=== PATIENT | female | born 1980 | race Two or more races ===

== ENCOUNTER 2022-01-31 15:17 | Outpatient (REF) | payer OTHER, SELFPAY ==
--- NOTE | ~2022-01-31 | US_ITS ---
EXAMINATION: US SOFT TISSUE NECK CLINICAL INFORMATION: Localized swelling mass and lump of the neck. History of thyroid cancer. COMPARISON: None TECHNIQUE: Ultrasound of the neck soft tissues of the right neck using a linear transducer FINDINGS: Palpable abnormality corresponds to a lymph node. This is normal in size and measures 1.5 x 0.3 x 0.6 cm sagittal AP and transverse dimension. This demonstrates normal ultrasound morphology and flow. US/US soft tiss head and/or neck IMPRESSION: Palpable abnormality corresponds to a normal-appearing right cervical lymph node.
== END 2022-01-31 15:18 | disposition home or self-care (01) ==
LOC: HO.US 15:17
PROVIDERS: Visit Provider Nurse Practitioner Acute Care
DX: R22.1 Localized swelling, mass and lump, neck (principal)
CPT/HCPCS: 76536

== ENCOUNTER 2022-03-03 09:58 | Emergency (ER) | payer OTHER, SELFPAY ==
--- NOTE | ~2022-03-03 | CT_ITS ---
EXAMINATION: CT ABDOMEN AND PELVIS WITH CONTRAST CLINICAL INFORMATION: Right upper quadrant pain COMPARISON: None TECHNIQUE: Multidetector volumetric images were obtained from the superior aspect of the liver through the pubic symphysis following administration 85 mL of Omnipaque 350 intravenous contrast. Sagittal and coronal reformatted images were obtained on the technologist's workstation. Oral contrast: No This CT examination was performed using dose optimization techniques as appropriate, variously including the following: *Automated exposure control *Adjustment of mA and/or kV according to patient size (this includes techniques or standardized protocols for targeted exams where dose is matched to indication/reason for exam; i.e. extremities or head) *Use of iterative reconstruction technique DLP: 1005 mGy-cm FINDINGS: LUNG BASES: The visualized lung bases are unremarkable. LIVER, GALLBLADDER, AND BILIARY TREE: The liver is normal in size, shape, and attenuation. No focal hepatic lesion or biliary ductal dilatation is present. The gallbladder is unremarkable with no evidence of radiopaque gallstones, gallbladder wall thickening, or obvious pericholecystic inflammatory changes. PANCREAS: Unremarkable. SPLEEN: Unremarkable. ADRENAL GLANDS: Unremarkable. KIDNEYS AND URETERS: The kidneys are normal in size, shape, and attenuation. No hydronephrosis, hydroureter, or calculi seen. No perinephric stranding. BLADDER: Unremarkable. GASTROINTESTINAL TRACT: The small and large bowel are unremarkable. The appendix is unremarkable. ABDOMINAL WALL: No significant hernia is appreciated. LYMPH NODES: Normal. VASCULAR: Unremarkable. PELVIC VISCERA: Unremarkable. OSSEOUS STRUCTURES: Degenerative disc disease at L5-S1 with endplate osteophytes and hypertrophic facet arthropathy narrowing the central canal. Central canal narrowing also noted at L4-L5 predominantly due to a bulging disc and facet arthrosis. At L1-L2, there is a posterior disc osteophyte complex and central stenosis. CT/CT abdomen pelvis w con IMPRESSION: No focal inflammatory process or obstruction. Degenerative findings of the lumbar spine as described. Fleischner guidelines were followed.
--- NOTE | ~2022-03-03 | US_ITS ---
EXAMINATION: US ABDOMEN LIMITED CLINICAL INFORMATION: Right upper quadrant/right flank pain. Nausea.. COMPARISON: None TECHNIQUE: Real-time imaging of the right upper quadrant abdominal viscera. FINDINGS: PANCREAS: Visualized portions of pancreas are normal in appearance. LIVER: The liver is normal in size. The liver contour is normal. Liver echogenicity is diffusely increased. No focal hepatic lesion. There is no intrahepatic biliary duct dilatation seen. GALLBLADDER: The gallbladder is physiologically distended without evidence of stones, sludge, polyps, wall thickening or pericholecystic fluid. Technologist reports a positive sonographic Zepeda's sign. COMMON BILE DUCT: Normal in caliber measuring 0.3 cm in diameter. RIGHT KIDNEY: Normal. No hydronephrosis. No renal calculi or focal parenchymal lesions. The kidney measures 10.8 cm in maximum dimension. FREE FLUID: None. US/US abdomen limited IMPRESSION: -Diffusely increased liver echogenicity. This is a nonspecific finding but most suggestive of hepatic steatosis. Correlation with liver enzymes recommended. -Normal sonographic appearance of the gallbladder without gallstones, however, the technologist reports a positive sonographic Zepeda's sign. Clinical correlation recommended.
[2022-03-03 10:08] VITALS: BP 119/78; PULSE 78; RESP 18; TEMP 36.4; O2SAT 95; BMI 37.8
--- NOTE | 2022-03-03 11:24 | ED_ITS ---
HPI - Abdominal Pain General Chief Complaint: Abdominal Pain Stated Complaint: lower abd pain Time Seen by Provider: 03/03/22 11:13 Source: patient Mode of arrival: ambulatory History of Present Illness HPI narrative: 41-year-old female with a past medical history Julio's, hypothyroid, diabetes, presenting to the ED complaining of right-sided flank pain radiating to right knee x2 weeks. Reports pain intermittent relieved with ibuprofen with associated nausea and diarrhea. Admits pain worse with eating. Denies fever, chills, vomiting, constipation, dysuria, hematuria, cough, CP MD elicited complaint: abdominal pain and flank pain Related Data Previous Rx's Medication Instructions Recorded melatonin 1 mg tablet 1 mg PO BEDTIME PRN #30 tab 01/31/22 metformin 500 mg tablet 500 mg PO BID #60 tab 02/04/22 Synthroid 200 mcg tablet 200 mcg PO DAILY #30 tab NS 02/07/22 (levothyroxine) blood sugar diagnostic (FreeStyle #100 ea 02/08/22 Lite Strips) blood-glucose meter (FreeStyle #1 ea 02/08/22 Lite Meter) lancets 28 gauge (FreeStyle #100 ea 02/08/22 Lancets) ciprofloxacin HCl 500 mg tablet 500 mg PO BID 7 Days #14 tab 03/03/22 Allergies Allergy/AdvReac Type Severity Reaction Status Date / Time No Known Allergies Allergy Verified 03/03/22 10:14 Review of Systems Review of Systems Constitutional: No Fever, No Chills, No Fatigue, No Malaise ENT/Mouth: No Ear Pain, No Nasal Congestion, No sore throat, No Rhinorrhea, No Swallowing Difficulty Eyes: No Eye Pain, No Swelling, No Redness Cardiovascular: No Chest Pain, No SOB Respiratory: No Cough, No Sputum, No Dyspnea Gastrointestinal: + Nausea, No Vomiting, + Diarrhea, No Constipation, + Abdominal pain Genitourinary: No Dysuria, No Urinary Frequency, No Hematuria, No Urinary Incontinence, No Urgency, + Flank Pain, No Urinary Flow Changes Musculoskeletal: No joint pain, No Myalgias, No Joint Swelling Skin: No Skin Lesions, No rash Neuro: No Weakness, No Numbness, No Dizziness, No Headache Yes all other systems are reviewed and are negative [facility] Past Medical History Attestation statement: The following information was validated with the patient. Medical History Julio's thyroiditis Hypothyroidism Mass of right side of neck Type II diabetes mellitus Surgical History History of thyroid surgery Family History Family History Mother No problems noted. Father No problems noted. Social History Social History Housing: House Patient Tobacco Use Status: Never used Tobacco e-Cigarette/Vaping Use: Never Used Second Hand Smoke Exposure: No Advance Directives: Yes Advance Directives Information Provided: Yes Advance Directives on File: No Patient : No service: No Current occupational status: disabled Cognitive needs: No Hearing needs: No Vision needs: No Physical Exam ED Vital Signs: Vital Signs - 24 hr 03/03/22 10:08 Temperature 97.6 F Pulse Rate 78 Respiratory Rate 18 Blood Pressure 119/78 Pulse Oximetry 95 BMI result Body Mass Index 37.8 Const General: cooperative, healthy appearing, no acute distress, alert and awake Orientation/consciousness: patient oriented x3 Limitations: no limitations HENMT Head: Yes normal to inspection Ears: hearing grossly normal bilaterally General nose exam: Normal external nose present Face and sinus: Yes normal facial exam Eyes General: appearance normal, both eyes and all related structures EOM: EOMs intact bilaterally Neck Neck: Yes normal visual inspection and Yes no meningeal signs Resp Effort & Inspection: normal respiratory effort and no respiratory distress Auscultation: clear to auscultation bilaterally Cardio Rate: regular rate Heart sounds: S1 normal heart sound present and S2 normal heart sound present GI Inspection: Yes normal to inspection Palpation (GI): Soft to palpation, Tenderness to palpation present (GI) in the RUQ, no guarding and not rigid General: Yes CVA tenderness on the right Back/Spine/Pelvis Back: CVA tenderness Skin Rashes: no rashes Wounds: no wounds Neuro General: patient oriented x3 and no meningeal signs Gait exam (Neuro): Normal gait present Extrem General: Yes normal to inspection Course Course Course Narrative: 1258--no leukocytosis. Labs otherwise unremarkable. UA infected > with patient's symptoms concern for pyelonephritis US abdomen limited IMPRESSION: -Diffusely increased liver echogenicity. This is a nonspecific finding but most suggestive of hepatic steatosis. Correlation with liver enzymes recommended. -Normal sonographic appearance of the gallbladder without gallstones, however, the technologist reports a positive sonographic Zepeda's sign. Clinical correlation recommended. >>1300--on re-evaluation patient is still very tender in RUQ. Case discussed with Dr. Kaur, will obtain CT AP for further evaluation 1610--CT abdomen pelvis w con IMPRESSION: No focal inflammatory process or obstruction. Degenerative findings of the lumbar spine as described.? Fleischner guidelines were followed. >> results discussed with patient. Given 1st dose of Levaquin in the ED. MDM - Abdominal Pain MDM Narrative Medical decision making narrative: 41-year-old female with a past medical history Julio's, hypothyroid, diabetes, presenting to the ED complaining of right-sided flank pain radiating to right knee x2 weeks.On exam vital signs stable, NAD/nontoxic appearing, abdomen soft with RUQ/right CVAT, no rebound or guarding. Concern for cholecystitis/lithiasis vs renal stone/colic vs pancreatitis. Lower concern for Pyelo/UTI or appendicitis/diverticulitis Plan: Labs, UA, IVF, pain management, antiemetics Differential Diagnosis Differential diagnosis: Likely pancreatitis and renal colic Medical Records Attestation: I reviewed the patient's medical records. Lab Data Attestation: I reviewed the patient's lab results. Result diagrams: 03/03/22 11:34 03/03/22 11:34 Labs: Lab Results 03/03/22 03/03/22 03/03/22 Range/Units 11:34 11:34 11:38 WBC 7.3 (4.8-10.8) X10*3/uL RBC 4.77 (4.20-5.50) X10*6/uL Hgb 12.7 (12.0-16.0) g/dl Hct 39.3 (37.0-47.0) % MCV 82.4 (80.0-98.0) fL MCH 26.6 L (27.0-33.0) pg MCHC 32.3 (31.0-35.0) g/dl RDW 13.5 (11.0-16.0) % Plt Count 296 (160-400) X10*3/uL MPV 9.8 (9.4-12.3) fL Immature Gran % (Auto) 0.1 (0.0-0.4) % Neut % (Auto) 53.8 (45-73) % Lymph % (Auto) 37.2 (20-40) % [place] % (Auto) 6.8 (2-11) % Eos % (Auto) 1.0 (0-4) % Baso % (Auto) 1.1 (0-2) % Lymph # (Auto) 2.7 (1.2-4.9) X10*3/uL [place] # (Auto) 0.5 (0.1-1.2) X10*3/uL Eos # (Auto) 0.1 (0.0-0.4) X10*3/uL Baso # (Auto) 0.1 (0.0-0.2) X10*3/uL Abs Immat Gran (auto) 0.01 (0.00-0.03) X10*3/uL Absolute Neuts (auto) 4.0 (2.0-8.3) x10*3/uL Absolute Nucleated RBC 0.000 (0.0-0.012) X10*3/uL Nucleated RBC % (auto) 0.0 (0.0-0.2) /100WBC Sodium 139 (135-145) mmol/L Potassium 4.2 (3.3-5.1) mmol/L Chloride 107 (96-108) mmol/L Carbon Dioxide 24 (22-29) mmol/L Anion Gap 12 (12-20) BUN 10 (9-16) mg/dL Creatinine 0.76 (0.5-1.4) mg/dL Estim Creat Clear Calc 111.8 Estimated GFR > 60 Random Glucose 90 (60-115) mg/dL Calcium 9.5 (8.4-10.2) mg/dL Magnesium 2.0 (1.6-2.6) mg/dL Total Bilirubin 0.3 (0.0-1.0) mg/dL Direct Bilirubin < 0.2 (0.0-0.5) mg/dL AST 14 (5-31) U/L ALT 15 (0-31) U/L Alkaline Phosphatase 71 (39-117) U/L Total Protein 7.4 (6.5-8.0) g/dL Albumin 4.2 (3.5-5.0) g/dL Lipase 18 (8-78) U/L Beta HCG, Quant < 2 mIU/mL Urine Color YELLOW Urine Appearance CLOUDY Urine pH 6.0 (5.0-8.0) Ur Specific [place] 1.020 (1.005-1.025) Urine Protein NEG (NEG-TRACE) MG/DL Urine Glucose (UA) NEG (NEG) MG/DL Urine Ketones NEG (NEG) MG/DL Urine Blood TRACE (NEG) Urine Nitrite NEG (NEG) Ur Leukocyte Esterase 1+ H (NEG) Urine RBC 0-2 (0) /HPF Urine WBC 10-14 H (0-4) /HPF Ur Squamous Epith Cells 1+ /LPF Urine Bacteria 2+ /LPF Discharge Plan Discharge Clinical Impression: UTI (urinary tract infection) Patient Disposition: Home, Self-Care Instructions: Urinary Tract Infection in Women (DC) Additional Instructions: You have a urinary tract infection. Ciprofloxacin is antibiotic take as prescribed. Please stay hydrated. Your ultrasound and CT scan were unremarkable If her symptoms persist or worsen, pain becomes unbearable, you fever, you are unable to eat or drink, persistent nausea or vomiting please return to the emergency department Tienes sammy infecci?n del tracto urinario. La ciprofloxacina es un antibi?laith qu e se sharon seg?n lo prescrito. Por favor, mantente hidratado. Lorenz ultrasonido y tomograf?a computarizada no fueron notables Si ronan s?ntomas persisten o empeoran, el dolor se vuelve insoportable, tiene f iebre, no puede comer ni beber, n?useas o v?mitos persistentes, regrese al departamento de emergencias. Prescriptions: New ciprofloxacin HCl 500 mg tablet 500 mg PO BID 7 Days Qty: 14 0RF No Action metformin 500 mg tablet 500 mg PO BID Qty: 60 1RF levothyroxine [Synthroid] 200 mcg tablet 200 mcg PO DAILY Qty: 30 2RF (DME) FreeStyle Lite Strips Strip See Rx Instructions .Route Qty: 100 0RF Rx Instructions: Test Daily (DME) blood-glucose meter [FreeStyle Lite Meter] Kit See Rx Instructions .Route Qty: 1 0RF Rx Instructions: Test Daily (DME) lancets [FreeStyle Lancets] 28 gauge misc See Rx Instructions .Route Qty: 100 0RF Rx Instructions: Test daily melatonin 1 mg tablet 1 mg PO BEDTIME PRN (Reason: sleep) Qty: 30 0RF Referrals: David Jaimes [Physician] - 1 week Maria Elena Gomez MD [Primary Care Provider] - 2 days Print Language: Frisian
[2022-03-03 11:39] LABS: MANUAL DIFF FLAG NO
[2022-03-03 11:40] LABS: Basophils Absolute Auto 0.1 X10*3/uL (0.0-0.2); Basophils Percent Auto 1.1 % (0-2); Eosinophils Absolute Auto 0.1 X10*3/uL (0.0-0.4); Hematocrit 39.3 % (37.0-47.0); Hemoglobin 12.7 g/dl (12.0-16.0); Imm Gran Abs Auto 0.01 X10*3/uL (0.00-0.03); Imm Gran Pct Auto 0.1 % (0.0-0.4); Lymphocytes Absolute Auto 2.7 X10*3/uL (1.2-4.9); Lymphocytes Percent Auto 37.2 % (20-40); Mean Corpuscular HGB Conc 32.3 g/dl (31.0-35.0); Mean Corpuscular Hemoglobin 26.6 pg (27.0-33.0); Mean Corpuscular Volume 82.4 fL (80.0-98.0); Mean Platelet Volume 9.8 fL (9.4-12.3); Monocytes Absolute Auto 0.5 X10*3/uL (0.1-1.2); Monocytes Percent Auto 6.8 % (2-11); Neutrophils Percent Auto 53.8 % (45-73); Platelet Count 296 X10*3/uL (160-400); Red Blood Count 4.77 X10*6/uL (4.20-5.50); Red Cell Distribution Width 13.5 % (11.0-16.0); White Blood Count 7.3 X10*3/uL (4.8-10.8)
[2022-03-03 11:51] LABS: Appearance Urine CLOUDY; Color Urine YELLOW; Glucose Urine UA NEG (NEG); Leukocyte Esterase Urine 1+ (NEG); Nitrite Urine NEG (NEG); UACC Culture Trigger YES; Urine Blood TRACE (NEG); Urine Ketones NEG (NEG); Urine Protein NEG (NEG-TRACE)
[2022-03-03 12:01] LABS: Squamous Epithelial Cell Urine 1+ /LPF
[2022-03-03 12:02] LABS: Bacteria Urine 2+ /LPF; RBC Urine 0-2 /HPF (0)
[2022-03-03] MEDS: 0.9 % Sodium Chloride 1,000 ML 999 ML IV (12:03)
[2022-03-03] MEDS: Ketorolac Tromethamine 15 MG/ML VIAL IVPUSH (12:03)
[2022-03-03] MEDS: ondansetron HCL 4 MG/2 ML VIAL IVPUSH (12:03)
[2022-03-03 12:09] LABS: Alanine Aminotransferase 15 U/L (0-31); Albumin Level 4.2 g/dL (3.5-5.0); Alkaline Phosphatase 71 U/L (39-117); Anion Gap 12 (12-20); Aspartate Amino Transferase 14 U/L (5-31); Bilirubin Direct < 0.2 mg/dL (0.0-0.5); Bilirubin Total 0.3 mg/dL (0.0-1.0); Blood Urea Nitrogen 10 mg/dL (9-16); Calcium 9.5 mg/dL (8.4-10.2); Carbon Dioxide 24 mmol/L (22-29); Chloride 107 mmol/L (96-108); Creatinine Clr Calc Pharmacy 111.8; Estimated Glomerular Filt Rate > 60; Glucose Random 90 mg/dL (60-115); Lipase 18 U/L (8-78); Potassium 4.2 mmol/L (3.3-5.1); Sodium 139 mmol/L (135-145); Total Protein 7.4 g/dL (6.5-8.0)
[2022-03-03 13:54] LABS: HCG Quantitative < 2 mIU/mL
[2022-03-03] MEDS: iohexoL 350 MG/ML 100 ML INFUS..BTL 85 ML IV (14:47)
[2022-03-03 16:25] VITALS: BP 115/66; PULSE 82; RESP 12; TEMP 36.8
[2022-03-03] MEDS: levoFLOXacin 750 MG TABLET PO (16:30)
== END 2022-03-03 16:39 | disposition home or self-care (01) ==
PROVIDERS: Physician Assistant; Emergency Provider Emergency Medicine Emergency Medical Services; PCP Internal Medicine
DX: N39.0 Urinary tract infection, site not specified (principal); R10.11 Right upper quadrant pain; Z79.899 Other long term (current) drug therapy
CPT/HCPCS: 36415; 74177; 76705; 80048; 80076; 81001; 83690; 83735; 84702; 85025; 87086; 87088; 87186; 96374; 96375; 99284; J1885; J2405; Q9967

== ENCOUNTER 2022-03-04 09:43 | Outpatient (REF) | payer OTHER, SELFPAY ==
[2022-03-04 10:03] LABS: MANUAL DIFF FLAG NO
[2022-03-04 10:38] LABS: Basophils Percent Auto 0.7 % (0-2); Eosinophils Absolute Auto 0.1 X10*3/uL (0.0-0.4); Eosinophils Percent Auto 0.9 % (0-4); Hematocrit 39.7 % (37.0-47.0); Hemoglobin 12.5 g/dl (12.0-16.0); Imm Gran Abs Auto 0.02 X10*3/uL (0.00-0.03); Imm Gran Pct Auto 0.4 % (0.0-0.4); Lymphocytes Absolute Auto 2.3 X10*3/uL (1.2-4.9); Lymphocytes Percent Auto 40.8 % (20-40); Mean Corpuscular HGB Conc 31.5 g/dl (31.0-35.0); Mean Corpuscular Hemoglobin 26.2 pg (27.0-33.0); Mean Corpuscular Volume 83.2 fL (80.0-98.0); Mean Platelet Volume 10.4 fL (9.4-12.3); Monocytes Absolute Auto 0.3 X10*3/uL (0.1-1.2); Monocytes Percent Auto 5.9 % (2-11); Neutrophils Absolute Auto 2.9 x10*3/uL (2.0-8.3); Neutrophils Percent Auto 51.3 % (45-73); Platelet Count 289 X10*3/uL (160-400); Red Blood Count 4.77 X10*6/uL (4.20-5.50); Red Cell Distribution Width 13.5 % (11.0-16.0); White Blood Count 5.6 X10*3/uL (4.8-10.8)
[2022-03-04 10:49] LABS: Estimated Average Glucose 111 mg/dL; Hemoglobin A1c % 5.5 %
[2022-03-04 11:13] LABS: Alanine Aminotransferase 15 U/L (0-31); Albumin Level 4.1 g/dL (3.5-5.0); Alkaline Phosphatase 71 U/L (39-117); Anion Gap 11 (12-20); Aspartate Amino Transferase 10 U/L (5-31); Bilirubin Total 0.4 mg/dL (0.0-1.0); Blood Urea Nitrogen 10 mg/dL (9-16); Calcium 9.7 mg/dL (8.4-10.2); Carbon Dioxide 24 mmol/L (22-29); Chloride 108 mmol/L (96-108); Cholesterol 184 mg/dL; Estimated Glomerular Filt Rate > 60; Glucose Fasting 96 mg/dL (60-99); HDL Cholesterol 40 mg/dL; LDL Cholesterol Calculated 117 mg/dl; Potassium 4.2 mmol/L (3.3-5.1); Sodium 139 mmol/L (135-145); Total Protein 7.1 g/dL (6.5-8.0); Triglycerides 139 mg/dL
[2022-03-04 11:22] LABS: TSH reflex Free T4 < 0.01 uIU/mL (0.32-4.0)
[2022-03-04 11:55] LABS: Free T4 (Free Thyroxine) 1.56 ng/dL (0.71-1.85)
[2022-03-04 12:08] LABS: Folate 12.7 ng/mL (> or = 4.0); Vitamin B12 289 pg/mL (200-900)
[2022-03-04 12:42] LABS: Microalbum/Creatinine Ratio Ur 10.8 ug/mg cr
[2022-03-09 12:56] LABS: Vitamin D 25-OH, D2 <4 ng/mL; Vitamin D 25-OH, D3 20 ng/mL; Vitamin D 25-OH, Total 20 ng/mL (30-100)
== END 2022-03-04 09:44 | disposition home or self-care (01) ==
LOC: HO.LAB 09:43
PROVIDERS: PCP Internal Medicine; Visit Provider Nurse Practitioner Acute Care
DX: E03.9 Hypothyroidism, unspecified (principal); E11.9 Type 2 diabetes mellitus without complications
CPT/HCPCS: 36415; 80053; 80061; 82043; 82306; 82607; 82746; 83036; 84439; 84443; 85025

== ENCOUNTER 2022-04-05 10:55 | Outpatient (REF) | payer OTHER, SELFPAY ==
[2022-04-05 12:27] LABS: Thyroid Stimulating Hormone 0.04 uIU/mL (0.32-4.0)
== END 2022-04-05 10:56 | disposition home or self-care (01) ==
LOC: HO.LAB 10:55
PROVIDERS: PCP Internal Medicine; Visit Provider Internal Medicine
DX: E03.9 Hypothyroidism, unspecified (principal)
CPT/HCPCS: 36415; 84443